=== PATIENT | male | born 1955 | race Caucasian/White ===

== ENCOUNTER 2017-07-12 04:44 | Emergency (ER) | payer MEDICAID ==
[~2017-07-12] VITALS: Ht 182.9 cm; Wt 77.1 kg
--- NOTE | 2017-07-12 04:50 | NUR ---
TO BED 7 A 62 YO MALE BB [id number] FROM [facility] FOR LAC LEFT EYEBROW S/P GLF. PATIENT DENIES KO, HEAD/NECK/BACK PAIN. VSS. NAD NOTED. INITIAL WOUND CARE DONE. COMFORT MEASURES RENDERED. GOWNED.
[2017-07-12] MEDS ORDERED: BUPIVACAINE 0.5 % PF 150 MG/30 ML VIAL ONE (04:51)
--- NOTE | 2017-07-12 04:54 | NUR ---
dr angulo at bedside to eval.
[2017-07-12] MEDS ORDERED: TDAP [DIPH/PERTUSSIS/TET] 0.5 ML VIAL IM ONE ×2 (04:59→05:00)
[2017-07-12] MEDS ORDERED: BUPIVACAINE 0.25% 75 MG/30 ML VIAL IJ ONE (05:00)
--- NOTE | 2017-07-12 05:02 | NUR ---
Dr Parker at bedside to suture laceration on the left eyebrow.
--- NOTE | 2017-07-12 06:19 | NUR ---
AMBULANCE ETA: 08:00
--- NOTE | 2017-07-12 07:00 | NUR ---
REPORT GIVEN TO [facility]. Patient discharged in stable condition. Written and verbal after care instructions given. Patient verbalizes understanding of instruction. VSS. No further complaints.
[2017-07-12 07:01] VITALS: BP 135/69
== END 2017-07-12 07:02 ==
LOC: ER 04:46
DX: S01.112A Laceration without foreign body of left eyelid and periocular area, initial encounter (principal); F32.9 Major depressive disorder, single episode, unspecified; Z23 Encounter for immunization; F20.9 Schizophrenia, unspecified; W01.0XXA Fall on same level from slipping, tripping and stumbling without subsequent striking against object, initial encounter; Y92.89 Other specified places as the place of occurrence of the external cause; Y93.89 Activity, other specified; Y99.8 Other external cause status
CPT/HCPCS: 12013; 90471; 90715; 99283; A4606; A6402; J3490; Z7610

== ENCOUNTER 2017-07-17 21:16 | Emergency (ER) | payer MEDICAID ==
[~2017-07-17] VITALS: Ht 190.5 cm; Wt 78.0 kg
--- NOTE | 2017-07-17 21:20 | NUR ---
PT BIBRA FOR "SEIZURE WITNESSED BY STAFF AT [facility]" PER EMS PT WAS NOTED WITH SIEZURE ON BENCH AND GUIDED TO FLOOR BY STAFF. PT AOX2 RR EVEN AND UNLABORED. NO SOB NOTED. NAD NOTED. NO NVD AT THIS TIME. PT GOWNED AND PLACED ON MONITOR WAITING FOR MD CHU. PER EMS PLACED IV ON LEFT AC 18G. PT PLACED ON SEIZURE PRECAUTION.
[2017-07-17] MEDS ORDERED: IV NS 0.9% 1,000 ML BAG IV ONE (21:30)
[2017-07-17] MEDS ORDERED: THIAMINE HCL 100 MG TABLET PO ONE (21:30)
[2017-07-17] MEDS ORDERED: FOLIC ACID 1 MG TABLET PO ONE (21:30)
[2017-07-17] MEDS ORDERED: LORAZEPAM INJ 2 MG/ML VIAL IVP ONE (21:30)
[2017-07-17] MEDS ORDERED: FOLIC ACID 1 MG TABLET ONE (21:32)
[2017-07-17] MEDS ORDERED: THIAMINE HCL 100 MG TABLET ONE (21:32)
[2017-07-17] MEDS ORDERED: LORAZEPAM INJ 2 MG/ML VIAL ONE (21:32)
[2017-07-17 21:34] LABS: BASOPHILS # (AUTO) 0.1 /CMM (0.0-0.2); BASOPHILS % (AUTO) 0.7 % (0.0-2.0); EOSINOPHILS # (AUTO) 0.2 /CMM (0.0-0.7); EOSINOPHILS % (AUTO) 2.4 % (0.0-6.0); HEMATOCRIT 43 % (39-51); HEMOGLOBIN 14.3 g/dL (13.5-17.5); LYMPHOCYTES # (AUTO) 2.6 /CMM (0.8-4.8); LYMPHOCYTES % (AUTO) 26.4 % (20.0-44.0); MEAN CORPUSCULAR HEMOGLOBIN 29 PG (26.0-33.0); MEAN CORPUSCULAR HGB CONC 33 g/dl (31.0-36.0); MEAN CORPUSCULAR VOLUME 87 fL (80-96); MONOCYTES # (AUTO) 0.8 /CMM (0.1-1.30); MONOCYTES % (AUTO) 7.5 % (2.0-12.0); NEUTROPHILS # (AUTO) 6.3 /CMM (1.8-8.9); PLATELET COUNT (AUTO) 245 /CMM (150-450); RDW COEFFICIENT OF VARIATION 13.4 (11.5-15.0); RED BLOOD CELL COUNT(AUTO) 4.94 MIL/uL (4.5-6.0)
[2017-07-17 21:47] LABS: ALBUMIN 3.7 g/dL (3.4-5.0); BILIRUBIN,DIRECT 0.1 mg/dL (0.0-0.2); BILIRUBIN,TOTAL 0.5 mg/dL (0.2-1.0); CREATININE 1.1 mg/dL (0.6-1.3); POTASSIUM 3.9 mmol/L (3.5-5.1); TOTAL PROTEIN, SERUM 7.6 g/dL (6.4-8.2)
--- NOTE | 2017-07-17 21:49 | NUR ---
PT TO RADIOLOGY FOR HEAD CT.
--- NOTE | 2017-07-17 22:10 | NUR ---
PT RETURNED FROM CT.
--- NOTE | 2017-07-17 22:30 | NUR ---
CALLED NATHEN FOR READ ON IMAGES
--- NOTE | 2017-07-17 23:05 | NUR ---
ASSUMED D/C CARE OF PT AT THIS TIME ONLY ON BEHALF OF PRIMARY NURSE JOHNSON. Patient discharged to home in stable condition. Written and verbal after care instructions given. Patient verbalizes understanding of instruction. IV removed. Catheter intact and site benign. Pressure and 4x4 applied to site. No bleeding noted. Ambulatory with a steady gait
[2017-07-17 23:07] VITALS: BP 120/69
[2017-07-18] MEDS ORDERED: LORA1TAB PO (20:27)
[2017-07-18] MEDS ORDERED: TEMA15CA5 PO (20:27)
[2017-07-18] MEDS ORDERED: QUET100T PO (20:27)
== END 2017-07-17 23:09 | disposition home or self-care (01) ==
LOC: ER 21:17
DX: F10.231 Alcohol dependence with withdrawal delirium (principal); R56.9 Unspecified convulsions; F20.9 Schizophrenia, unspecified; F32.9 Major depressive disorder, single episode, unspecified; F41.9 Anxiety disorder, unspecified; F39 Unspecified mood [affective] disorder
CPT/HCPCS: 36415; 70450; 71010; 80048; 80076; 85025; 96361; 96374; 99291; A4606; J2060; J7030; Z7610

== ENCOUNTER 2017-07-18 18:44 | Emergency (ER) | payer MEDICAID ==
[~2017-07-18] VITALS: Ht 185.4 cm; Wt 77.1 kg
--- NOTE | 2017-07-18 18:47 | NUR ---
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
--- NOTE | 2017-07-18 18:47 | NUR ---
[id number] FROM [facility]: S/P WITNESSED SEIZURE. NO VISIBLE IINJURIES NOTED. BS IN FIELD 89. A/A/O UPON ARRIVAL. IN C/COLLAR. PLACED ON MONITOR AWAITING MD ORDER
[2017-07-18 19:26] LABS: BASOPHILS # (AUTO) 0.1 /CMM (0.0-0.2); BASOPHILS % (AUTO) 0.6 % (0.0-2.0); EOSINOPHILS # (AUTO) 0.1 /CMM (0.0-0.7); HEMATOCRIT 41 % (39-51); HEMOGLOBIN 13.4 g/dL (13.5-17.5); LYMPHOCYTES # (AUTO) 2.4 /CMM (0.8-4.8); LYMPHOCYTES % (AUTO) 21.5 % (20.0-44.0); MEAN CORPUSCULAR HEMOGLOBIN 29 PG (26.0-33.0); MEAN CORPUSCULAR HGB CONC 33 g/dl (31.0-36.0); MEAN CORPUSCULAR VOLUME 88 fL (80-96); MONOCYTES # (AUTO) 1.1 /CMM (0.1-1.30); MONOCYTES % (AUTO) 9.9 % (2.0-12.0); NEUTROPHILS # (AUTO) 7.7 /CMM (1.8-8.9); PLATELET COUNT (AUTO) 253 /CMM (150-450); RDW COEFFICIENT OF VARIATION 13.8 (11.5-15.0); RED BLOOD CELL COUNT(AUTO) 4.64 MIL/uL (4.5-6.0); WHITE BLOOD COUNT (AUTO) 11.4 K/uL (4.3-11.0)
[2017-07-18 19:30] LABS: CALCIUM, SERUM 8.6 mg/dL (8.5-10.1); CARBON DIOXIDE 19 mmol/L (21-32); CHLORIDE 101 mmol/L (98-107); CREATININE 1.2 mg/dL (0.6-1.3); GLUCOSE 156 mg/dL (74-106); POTASSIUM 3.6 mmol/L (3.5-5.1); SODIUM SERUM 137 mmol/L (136-145); UREA NITROGEN, BLOOD 17 mg/dL (7-18)
[2017-07-18] MEDS ORDERED: IV NS 0.9% 500 ML BAG IV ONE (19:30)
--- NOTE | 2017-07-18 19:30 | NUR ---
STARTED WITH NEW SALINE LOCK ON THE RAC G20, NS [address] LYON'S ORDER.
[2017-07-18 19:34] LABS: INR 1.04 (0.87-1.13); PROTHROMBIN TIME 10.8 SECS (9.5-12.7)
[2017-07-18 19:36] LABS: ALANINE AMINOTRANSFERASE 21 U/L (12-78); ALBUMIN 3.6 g/dL (3.4-5.0); ALCOHOL, BLOOD < 3 mg/dL (0-0); ALKALINE PHOSPHATASE 77 U/L (46-116); ASPARTATE AMINOTRANSFERASE 30 U/L (15-37); BILIRUBIN,DIRECT 0.1 mg/dL (0.0-0.2); BILIRUBIN,TOTAL 0.6 mg/dL (0.2-1.0); TOTAL PROTEIN, SERUM 7.4 g/dL (6.4-8.2)
[2017-07-18 19:46] LABS: PHENYTOIN (DILANTIN) < 0.5 ug/ml (10.0-20.0)
[2017-07-18 19:47] LABS: VALPROIC ACID < 3 ug/mL (50-100)
--- NOTE | 2017-07-18 19:55 | NUR ---
CXR AT BEDSIDE.
[2017-07-18] MEDS ORDERED: IV NS 0.9% 250 ML IV ONE (20:00)
--- NOTE | 2017-07-18 20:01 | NUR ---
PATIENT TO CT.
[2017-07-18] MEDS ORDERED: TEMA15CA5 PO (20:27)
[2017-07-18] MEDS ORDERED: LORA1TAB PO (20:27)
[2017-07-18] MEDS ORDERED: QUET100T PO (20:27)
[2017-07-18] MEDS ORDERED: LEVETIRACETAM (500MG) 1,000 MG in IV NS 0.9% 100 ML IV SCH (20:30)
--- NOTE | 2017-07-18 20:47 | NUR ---
PATIENT IN BED, ALERT RESPONSIVE, NO NAD NOTED. VSS. SEIZURE PRECAUTIONS IN PLACE.
[2017-07-18] MEDS ORDERED: LORAZEPAM 1 MG TABLET ONE (20:52)
[2017-07-18] MEDS ORDERED: LORAZEPAM 0.5 MG TABLET PO ONE (21:00)
--- NOTE | 2017-07-18 21:30 | NUR ---
REPORT GIVEN TO AKUA BARTHOLOMEW FOR JOLEEN AT [facility].
[2017-07-18 21:55] VITALS: BP 105/68
--- NOTE | 2017-07-18 21:56 | NUR ---
IV removed. Catheter intact and site benign. Pressure and 4x4 applied to site. No bleeding noted. Patient discharged to [facility] in stable condition. Written and verbal after care instructions given. Patient verbalizes understanding of instruction. Patient endorsed to [employer] emt for boris. No further complaints.
== END 2017-07-18 21:58 | disposition home or self-care (01) ==
LOC: ER 18:45
DX: F10.239 Alcohol dependence with withdrawal, unspecified (principal); G40.909 Epilepsy, unspecified, not intractable, without status epilepticus; F32.9 Major depressive disorder, single episode, unspecified; R79.1 Abnormal coagulation profile; R51 Headache; F20.9 Schizophrenia, unspecified; F41.9 Anxiety disorder, unspecified; F39 Unspecified mood [affective] disorder
CPT/HCPCS: 36415; 70450; 71010; 72125; 80048; 80076; 80164; 80185; 85025; 85730; 87081; 93005; 99285; A4606; G0480; J1953; J7030; J7040; J7050; Z7610